=== PATIENT | female | born 1945 | race Caucasian/White ===

== ENCOUNTER 2016-10-01 19:57 | Inpatient (IN) | payer MEDICARE ==
--- NOTE | 2016-10-03 00:35 | NUR ---
PATIENT TRANSFERRED TO ICU AT [id number].
== END 2016-10-03 13:37 | disposition short-term general hospital (02) | DRG 280 ==
LOC: ER 19:57 → MED 23:10 → ER 10-02 00:20 → ICU 10-03 00:28 → MED 10-03 00:28 → ICU 10-03 00:28
PROVIDERS: ADMIT Internal Medicine
DX: I11.0 Hypertensive heart disease with heart failure (principal); J18.9 Pneumonia, unspecified organism; I21.4 Non-ST elevation (NSTEMI) myocardial infarction; J96.01 Acute respiratory failure with hypoxia; J96.02 Acute respiratory failure with hypercapnia; I50.21 Acute systolic (congestive) heart failure; E11.9 Type 2 diabetes mellitus without complications; Z87.891 Personal history of nicotine dependence; E78.5 Hyperlipidemia, unspecified; Z90.49 Acquired absence of other specified parts of digestive tract; Z90.710 Acquired absence of both cervix and uterus; K21.9 Gastro-esophageal reflux disease without esophagitis; Z79.84 Long term (current) use of oral hypoglycemic drugs; Z79.899 Other long term (current) drug therapy; Z88.8 Allergy status to other drugs, medicaments and biological substances; Z82.49 Family history of ischemic heart disease and other diseases of the circulatory system; Z83.3 Family history of diabetes mellitus
CPT/HCPCS: 36415; J0456; J0696; J1650; J1940; J3370; J7050

== ENCOUNTER 2016-10-01 19:57 | Emergency (ER) | payer MEDICARE | END 2016-10-02 00:19 | disposition critical access hospital (66) | LOC: ER 19:57 | DX: J18.9 Pneumonia, unspecified organism (principal); R09.02 Hypoxemia; R53.1 Weakness; E11.9 Type 2 diabetes mellitus without complications; I10 Essential (primary) hypertension; E78.5 Hyperlipidemia, unspecified; Z79.84 Long term (current) use of oral hypoglycemic drugs; Z90.49 Acquired absence of other specified parts of digestive tract; Z90.710 Acquired absence of both cervix and uterus; Z98.51 Tubal ligation status; Z88.8 Allergy status to other drugs, medicaments and biological substances | CPT/HCPCS: 36415; 96365; 96367; J0696 ==

== ENCOUNTER 2016-10-03 14:06 | Emergency (ER) | payer MEDICARE | END 2016-10-03 14:20 | disposition E | LOC: ER 14:06 | DX: I21.4 Non-ST elevation (NSTEMI) myocardial infarction (principal); I46.9 Cardiac arrest, cause unspecified; J81.0 Acute pulmonary edema; I10 Essential (primary) hypertension; E11.9 Type 2 diabetes mellitus without complications; Z90.49 Acquired absence of other specified parts of digestive tract; Z90.710 Acquired absence of both cervix and uterus; Z98.51 Tubal ligation status | CPT/HCPCS: 92950 ==